=== PATIENT | female | born 1995 | race Caucasian/White ===

== ENCOUNTER 2023-02-27 07:08 | Day surgery (SDC) | payer OTHER ==
[2023-02-26 18:27] LABS: BASOPHILS # (AUTO) 0.2 K/uL (0.00-0.22); BASOPHILS % (AUTO) 2.1 % (0.0-2.0); EOSINOPHILS # (AUTO) 0.2 K/uL (0-0.4); EOSINOPHILS % (AUTO) 2.8 % (0.0-4.0); HEMATOCRIT 38.8 % (36-48); HEMOGLOBIN 13.1 g/dL (12.0-16.0); LYMPHOCYTES # (AUTO) 3.1 K/uL (2.5-16.5); LYMPHOCYTES % (AUTO) 40.1 % (20.5-51.1); MEAN CORPUSCULAR HEMOGLOBIN 29 pg (27-31); MEAN CORPUSCULAR HGB CONC 34 g/dL (33-37); MEAN CORPUSCULAR VOLUME 85.7 fL (80-94); MONOCYTES # (AUTO) 0.7 K/uL (0.8-1.0); MONOCYTES % (AUTO) 8.8 % (1.7-9.3); NEUTROPHILS # (AUTO) 3.5 K/uL (1.8-7.7); NEUTROPHILS % (AUTO) 46.2 % (42.2-75.2); PLATELET COUNT (AUTO) 327 K/uL (140-450); RED BLOOD CELL COUNT(AUTO) 4.53 MIL/uL (4.20-5.40); RED CELL DISTRIBUTION WIDTH 13.5 % (11.6-13.7); WHITE BLOOD COUNT (AUTO) 7.6 K/uL (4.8-10.8)
[2023-02-26 18:46] LABS: ALBUMIN 3.9 g/dL (3.4-5.0); ANION GAP 13.2 (8-16); CALCIUM 8.9 mg/dL (8.5-10.1); CREATININE 0.9 mg/dL (0.6-1.3); POTASSIUM 4.2 mmol/L (3.5-5.1); TOTAL BILIRUBIN 0.6 mg/dL (0.0-1.0); TOTAL PROTEIN, SERUM 7.1 g/dL (6.4-8.2)
[~2023-02-27] VITALS: Ht 160 cm; Wt 62.1 kg
[2023-02-27] MEDS ORDERED: SEVOFLURANE 250 ML BTL INH ONE (08:37)
[2023-02-27] MEDS ORDERED: BUPIVACAINE-MPF 0.25% 30 ML VIAL INJ ONE (08:38)
[2023-02-27] MEDS ORDERED: fentaNYL citrate 0.05 MG/ML VIAL ONE (08:41)
[2023-02-27] MEDS ORDERED: ONDANSETRON 4 MG/2 ML VIAL ONE (09:20)
[2023-02-27] MEDS ORDERED: KETOROLAC 30 MG/ML VIAL ONE (09:20)
[2023-02-27] MEDS ORDERED: PROPOFOL 200 MG/20 ML VIAL IV ONE (09:20)
[2023-02-27] MEDS ORDERED: SUCCINYLCHOLINE CHLORIDE 200 MG/10 ML VIAL IVP ONE (09:20)
[2023-02-27] MEDS ORDERED: METOCLOPRAMIDE 10 MG/2 ML INJ VIAL IVP PRN (09:35)
[2023-02-27] MEDS ORDERED: LACTATED RINGERS 1,000 ML IV SCH (09:35)
[2023-02-27] MEDS ORDERED: LABETALOL 20 MG/4 ML VIAL IVP PRN (09:35)
[2023-02-27] MEDS ORDERED: HYDROmorphone 1 MG/ML AMP IVP PRN (09:35)
[2023-02-27] MEDS ORDERED: hydrALAZINE 20 MG/ML VIAL IVP PRN (09:36)
== END 2023-02-27 10:50 | disposition home or self-care (01) ==
LOC: MMU 07:08 → MOR 07:08
PROVIDERS: ATTEND Obstetrics & Gynecology
DX: Z30.2 Encounter for sterilization (principal); I10 Essential (primary) hypertension
CPT/HCPCS: 36415; 58670; 80053; 82374; 85025; J0330; J1885; J2405; J2704; J3010; J3490; J7120